=== PATIENT | male | born 1985 | race Hispanic/Latino ===

== ENCOUNTER 2017-03-14 13:57 | Day surgery (SDC) | payer MEDICAID ==
[~2017-03-14 13:57] MED LIST: ACETAMINOPHEN 1,000 MG/100 ML VIAL IV SCH; LACTATED RINGERS 1,000 ML IV SCH; LIDOCAINE HCL 1% 20 ML VIAL SUBCUT PRN; MIDAZOLAM HCL 2 MG/2 ML SYR IV PRN; ceFAZolin 1 GM in NORMAL SALINE MINI-BAG+ 100 ML IV PRN
[2017-03-14 14:20] VITALS: TEMP 97.5
[2017-03-14] MEDS ORDERED: MIDAZOLAM HCL 2 MG/2 ML VIAL ONE (14:37)
[2017-03-14] MEDS ORDERED: BUPIVACAINE HCL/PF 0.25% 10 ML VIAL INJ ONE (14:43)
[2017-03-14] MEDS ORDERED: FENTANYL 100 MCG/2 ML VIAL ONE ×2 (14:52→17:22)
[2017-03-14] MEDS ORDERED: LIDOCAINE HCL 1% 20 ML VIAL ONE (14:54)
[2017-03-14 17:18] VITALS: RESP 16
[2017-03-14] MEDS ORDERED: ONDANSETRON HCL 4 MG/2 ML VIAL ONE (17:22)
[2017-03-14] MEDS ORDERED: ACETAMINOPHEN 1,000 MG/100 ML VIAL IV SCH (17:55)
[2017-03-14] MEDS ORDERED: ONDANSETRON HCL 4 MG/2 ML VIAL IV PRN (17:55)
[2017-03-14] MEDS ORDERED: LIDOCAINE HCL 1% 20 ML VIAL SUBCUT PRN (17:55)
[2017-03-14] MEDS ORDERED: FENTANYL 100 MCG/2 ML VIAL IV PRN (17:55)
[2017-03-14] MEDS ORDERED: LACTATED RINGERS 1,000 ML IV SCH ×2 (17:55→18:00)
[2017-03-14] MEDS ORDERED: MORPHINE SULFATE 10 MG/ML SYR IV PRN (17:55)
[2017-03-14] MEDS ORDERED: ceFAZolin 1 GM in NORMAL SALINE MINI-BAG+ 100 ML IV PRN (17:55)
[2017-03-14] MEDS ORDERED: MIDAZOLAM HCL 2 MG/2 ML SYR IV PRN (17:55)
[2017-03-14 17:57] VITALS: BP 139/86; PULSE 72; O2SAT 95
--- NOTE | 2017-03-14 19:46 | OPERATIVE NOTE: Orthopedic ---
DATE OF SURGERY: 03/14/17 SURGEON: Leon ANESTHESIA: General PREOPERATIVE DIAGNOSIS: 1. Symptomatic retained hardware in the right wrist following ORIF of the POSTOPERATIVE DIAGNOSIS: Same as above with confirmed rupture of the flexor pollicis longus tendon. PROCEDURE PERFORMED: Hardware removal, and repair of the FPL tendon. INDICATION FOR PROCEDURE: The patient is a 31-year-old male who underwent ORIF of the right distal radius approximately a year ago. He developed persistent pain and recurrent swelling in the wrist, after which she was decided that we would go ahead and pursue hardware removal. Then last week he felt a pop in his wrist, after which she was unable to actively flex the IP joint of his thumb. Due to his persistent pain as well as these new findings, he was taken to the operating room for exploration of the tendon as well as hardware removal. SUMMARY: After informed consent was obtained, the patient was taken to the operating room where he is placed in the supine position under general anesthesia. After adequate anesthesia was achieved the right hand and upper extremity were prepped and draped in usual sterile fashion, the limb was gently exsanguinated, and a tourniquet was inflated about the proximal arm to 250 mmHg. A longitudinal incision was performed through his old incisional scar, extending it a little bit proximally and distally in order to try to work around the scar tissue. Generalized soft tissue was gently but sharply dissected, until we identified the flexor pollicis longus muscle belly. At that point it was apparent that the tendon was in fact ruptured. Sharp dissection was used to gently separate the proximal tendon and muscle belly from the surrounding scar, and then dissection was carried out down to the volar aspect of the distal radius. The distal radius plate was then exposed, and all of the screws removed. We were then able to easily lift the plate up off of the distal radius. The screw holes were then gently debrided using a rongeur. We then initially tried to retrieve the distal portion of the tendon through the carpal tunnel without opening up the carpal tunnel, but this was not successful. Therefore we extended the incision at an angle across the palmar flexion crease, and then onto the palm in the fashion of a standard carpal tunnel approach. The underlying soft tissue was sharply dissected down to the transverse carpal ligament. We very carefully opened up the transverse carpal ligament, and as we got about alf through we were able to identify the distal portion of the FPL tendon. Due to the fact that the transverse carpal ligament acts somewhat as a jamin for this tendon, we left the distal portion of the ligament intact. We retrieved the tendon proximally, and the freshened both ends sharply. We then placed a core suture of #4-0 FiberWire in a modified [place] fashion. The repair was then augmented also with 4-0 FiberWire in a running circumferential fashion. The thumb was moved to the range of motion, and the repair was noted to be stable. We then irrigated the wound with copious amounts of sterile saline, and then the subcutaneous tissue was closed with 2-0 Vicryl. The skin was closed with 4-0 nylon in an interrupted horizontal mattress fashion. We then injected the incision site locally using 0.25% Marcaine without epinephrine. The hand was placed into a sterile gauze dressing, and a radial thumb spica splint, maintaining the thumb MCP joint in flexion. The patient tolerated the procedure well and was taken to the recovery room in stable condition. ESTIMATED BLOOD LOSS: Minimal FLUIDS: 900 mL TOURNIQUET TIME: 88 minutes
--- NOTE | 2017-03-23 16:31 | PREOPERATIVE H&P ---
History of Present Illness (Kristofer Quintero MD; 03/10/2017 7:00 PM) The patient is a 31 year old male. The patient is here for follow-up today because he has experienced a change in his wrist pain. A few days ago he was working with the right hand and felt a pop in his wrist. After that it became quite painful and difficult for him to flex his thumb. He has therefore come in for repeat evaluation. Allergies (Melly Guerrier RN; 03/10/2017 11:21 AM) No Known Drug [id number] Social History (Melly Guerrier RN; 03/10/2017 11:21 AM) Alcohol Use Drinks Socially. Tobacco Use Current every day smoker. Medication History (Melly Guerrier RN; 03/10/2017 11:21 AM) Meloxicam (15MG Tablet, 1 (one) Tablet Oral daily, Taken starting 11/02/2016) Active. Ibuprofen (200MG Capsule, Oral) Discontinued. (aprox 16 per day) Medications Reconciled Review of Systems (Kristofer Quintero MD; 03/10/2017 7:03 PM) General Not Present- Chills and Fever. Skin Not Present- Erythema, Skin Color Changes and Skin Problems. HEENT Not Present- Sleep Apnea. Neck Not Present- Neck Pain. Respiratory Not Present- Cough and Shortness of Breath. Cardiovascular Not Present- Chest Pain, Difficulty Breathing On Exertion, Fainting and Leg Pain and/or Swelling. Gastrointestinal Not Present- Abdominal Pain, Nausea and Vomiting. Male Genitourinary Not Present- Painful Urination and Urethral Discharge. Musculoskeletal Present- Joint Pain and Joint Swelling. Endocrine Not Present- Weight Loss. Hematology Not Present- Bleeding Problems, DVT and Easy Bruising. Vitals (Melly Guerrier RN; 03/10/2017 11:20 AM) 03/10/2017 11:18 AM Weight: 153 lb Height: 68in Body Surface Area: 1.82 m Body Mass Index: 23.26 kg/m Temp.: 98.4F Pulse: 88 (Regular) Resp.: 16 (Unlabored) BP: 100/70 (Sitting, Left Arm, Standard) Physical Exam (Kristofer Quintero MD; 03/10/2017 7:01 PM) Musculoskeletal Physical examination of the wrist reveals a does have diffuse 1+ swelling, but no warmth or erythema. He does have active function of the FPL tendon, although he is quite hesitant as this seems to cause him some pain. His EPL is visible and intact throughout its length. Assessment & Plan (Kristofer Quintero MD; 03/10/2017 7:02 PM) Wrist pain, chronic, right (M25.531) Thumb pain, right (M79.644) Assessment: Chronic right wrist pain following ORIF of the right distal radius, and now with a new onset of increased pain that appears to be involving the FPL. The FPL is functional. Plan: We discussed this condition, and I do not see any contraindication to proceeding with hardware removal. We should be able to inspect the FPL at that time and see if there is any other issue that needs to be addressed during that procedure. Signed by Kristofer Quintero MD (03/10/2017 7:04 PM) VIN[facility]
== END 2017-03-14 18:05 ==
LOC: SDS 13:57
PROVIDERS: ATTEND Orthopaedic Surgery
DX: T81.89XA Other complications of procedures, not elsewhere classified, initial encounter (principal); Y83.1 Surgical operation with implant of artificial internal device as the cause of abnormal reaction of the patient, or of later complication, without mention of misadventure at the time of the procedure; S66.811A Strain of other specified muscles, fascia and tendons at wrist and hand level, right hand, initial encounter
CPT/HCPCS: J0690; J2250; J2405; J3010